=== PATIENT | male | born 1930 | race Caucasian/White ===

== ENCOUNTER 2017-12-14 12:21 | Emergency (ER) | payer OTHER ==
[~2017-12-14] VITALS: Ht 175.3 cm; Wt 98.0 kg
[~2017-12-14 12:21] MED LIST: ASPI81TA16 PO; GUAI400T32 PO; KETO2CRE TOPICAL; LEVO.075 PO; LISI-515 PO; META48.53 PO; MULTTAB62 PO; NORC5TAB PO; PRAV40TA2 PO; TRAZ100T4 PO; XARE20TA PO
[2017-12-14 12:28] VITALS: BP 137/72; PULSE 82; RESP 16; TEMP 98; O2SAT 94
[2017-12-14] MEDS ORDERED: TRAZ1TAB14 PO (12:40)
[2017-12-14] MEDS ORDERED: PRED10 PO (12:40)
[2017-12-14] MEDS ORDERED: TETANUS/DIPHTHERIA TOXOID ADULT 0.5 ML VIAL IM ONE (12:45)
--- NOTE | 2017-12-14 12:45 | PD ---
HPI Chief Complaint: Laceration/Skin Injury Time Seen by Provider: 12:32 Travel History International Travel<30 days: No Contact w/Intl Traveler<30days: No Traveled to known affect area: No History of Present Illness HPI 87-year-old male here with a laceration to the right great toe. Injury occurred prior to arrival. He cut the toe on a metal door jam in his home. He was barefoot at the time. Patient is on Xarelto and the wound continued to bleed therefore he came into the ED. He did not fall to the ground. No head injury loss of consciousness. He reports minimal pain at the site of the laceration. No with decreased range of motion of the toe. Tetanus immunization is not up-to-date. He denies any other injuries. PFSH Past Medical History Hx Anticoagulant Therapy: Yes Arthritis: Yes Cancer: No Cardiovascular Problems: Yes High Cholesterol: Yes Diabetes: Yes Diminished Hearing: No Deep Vein Thrombosis: Yes Gastrointestinal Disorders: Yes (last BM 3 days ago) Genitourinary: Yes Hypertension: Yes Implanted Vascular Access Dvce: No Musculoskeletal: Yes Neurologic: No Psychiatric: No Reproductive: No Respiratory: Yes (PE ) Thyroid Disease: Yes Past Surgical History Abdominal Surgery: Yes (appendectomy) Appendectomy: Yes Body Medical Devices: VENA CAVA FILTER Eye Surgery: Yes (CATARACT) Joint Replacement: Yes (BILATERAL TOTAL HIP) Neurologic Surgery: Yes (SPACER PLATE IN SPINE) Other Surgery: Yes Social History Alcohol Use: Yes (OCCASIONAL) Tobacco Use: No Substance Use: No Allergies-Medications (Allergen,Severity, Reaction): Coded Allergies: amoxicillin (Unverified Allergy, Mild, Rash, 12/14/17) Reported Meds & Prescriptions Reported Meds & Active Scripts Active Synthroid (Levothyroxine Sodium) 75 Mcg Tab 75 Mcg PO DAILY@0600 30 Days Reported Trazodone (Trazodone HCl) 150 Mg Tablet 150 Mg PO HS Prednisone 10 Mg Tab 10 Mg PO DAILY Xarelto (Rivaroxaban) 20 Mg Tab 20 Mg PO DAILY Metamucil Original Texture (Psyllium Hydrophilic Mucilloid) 48.57 % Pow 1 Scoop PO DAILY 1 rounded TABLESPOONFUL in 8 oz of liquid at the first sign of irregularity. Pravastatin 40 Mg Tab 20 Mg PO HS Multi-Vitamin/Minerals (Multiple Vitamins W/ Minerals) 1 Tab Tab 1 Tab PO DAILY Lisinopril 20 Mg Tab 10 Mg PO DAILY Ketoconazole Topical 2% Cream 1 Applic TOPICAL DAILY Aspirin Adult Low Strength (Aspirin) 81 Mg Tabdr 81 Mg PO DAILY Review of Systems Except as stated in HPI: all other systems reviewed are Neg Physical Exam Narrative GENERAL: Alert and well-appearing 87-year-old male SKIN: 2 cm laceration to the plantar aspect of the great toe. HEAD: Normocephalic. EYES: No injection or drainage. NECK: Supple CARDIOVASCULAR: Regular rate and rhythm RESPIRATORY: Breath sounds equal bilaterally. No accessory muscle use. GASTROINTESTINAL: Abdomen soft, non-tender, nondistended. MUSCULOSKELETAL: No cyanosis, or edema. Right foot: Can flex and extend the great toe against resistance. There is a 2 cm laceration to the plantar aspect. Active bleeding. Sensation intact. Brisk refill intact. Data Data Last Documented VS Vital Signs Date Time Temp Pulse Resp B/P (MAP) Pulse Ox O2 Delivery O2 Flow Rate FiO2 12/14/17 12:28 98.0 82 16 137/72 (93) 94 Orders Orders Toe (Min 2vws) (12/14/17 ) Tetanus/Diphtheria Tox Adult (Tetanus/Di (12/14/17 12:45) Gelatin 12 Mm/7 Mm Top (Gelfoam 12 Mm/7 (12/14/17 13:45) MDM Medical Decision Making Medical Screen Exam Complete: Yes Emergency Medical Condition: Yes Differential Diagnosis Laceration, retained foreign body, tendon injury Narrative Course 87-year-old male here with a laceration to the right great toe. the digit is neurovascularly intact. X-rays negative for foreign body. Suture repair performed. Procedures Procedure Narrative LACERATION LOCATION: Right great toe LENGTH: 2.5 cm NUMBER OF STITCHES/DOMINGUEZ: 5 REPAIR: The area of the laceration was prepped with Betadine and sterilely draped. Digital block using 1% lidocaine. The wound was copiously irrigated and explored without evidence of foreign body, tendon injury or neurovascular injury. The wound was closed using 3-0 Ethilon. This was a single layer repair. A sterile dressing was applied. The patient was advised to keep the dressing clean and dry. Patient tolerated the procedure well. Diagnosis Primary Impression: Toe laceration Qualified Codes: S91.111A - Laceration without foreign body of right great toe without damage to nail, initial encounter Referrals: Primary Care Physician Additional Instructions: Sutures need to be removed in 7-10 days. Keep the dressing in place for 24 hours. Today for wound recheck. Disposition: 01 DISCHARGE HOME Condition: Stable Miranda Ledesma Dec 14, 2017 12:45
--- NOTE | 2017-12-14 13:13 | RADRPT ---
EXAM DATE: 12/14/2017 12:58 PM EDT AGE/SEX: 87 years / Male INDICATIONS: Laceration base of right big toe on metal door sill CLINICAL DATA: This is the patient's initial encounter. Patient reports that signs and symptoms have been present for 1 day and indicates a pain score of 1/10. MEDICAL/SURGICAL HISTORY: . Cardiovascular disease. Hypertension. Deep venous thrombosis. Diabe tic. Appendectomy. COMPARISON: No prior exams available for comparison. FINDINGS: No acute fracture or dislocation. Moderate osteoarthritis throughout the right foot with extensive va scular calcifications. No radiopaque foreign body. CONCLUSION: No radiopaque foreign body. No acute findings. Electronically signed by: Chriss Song MD 12/14/2017 1:11 PM EDT
[2017-12-14] MEDS ORDERED: GELATIN 12 MM/7 MM FOAM TOPICAL ONE (13:45)
== END 2017-12-14 14:08 | disposition home or self-care (01) ==
LOC: PHEFT 12:21
DX: S91.111A Laceration without foreign body of right great toe without damage to nail, initial encounter (principal); M19.90 Unspecified osteoarthritis, unspecified site; E78.00 Pure hypercholesterolemia, unspecified; E11.9 Type 2 diabetes mellitus without complications; I10 Essential (primary) hypertension; E07.9 Disorder of thyroid, unspecified; W45.8XXA Other foreign body or object entering through skin, initial encounter; Y92.009 Unspecified place in unspecified non-institutional (private) residence as the place of occurrence of the external cause; Z23 Encounter for immunization; Z79.82 Long term (current) use of aspirin; Z79.899 Other long term (current) drug therapy; Z86.711 Personal history of pulmonary embolism; Z86.718 Personal history of other venous thrombosis and embolism; Z88.0 Allergy status to penicillin
CPT/HCPCS: 12001; 73660; 90471; 90714